=== PATIENT | female | born 1960 | race Caucasian/White ===

== ENCOUNTER 2018-08-31 05:58 | Day surgery (SDC) | payer BC ==
[~2018-08-31] VITALS: Ht 149.9 cm; Wt 62.2 kg
[2018-08-31 06:51] VITALS: Ht 149.9 cm; Wt 62.2 kg
[2018-08-31] MEDS ORDERED: LOSARTAN (07:01)
[2018-08-31] MEDS ORDERED: PREVACID (07:01)
[2018-08-31] MEDS ORDERED: GABAPENTIN (07:01)
[2018-08-31] MEDS ORDERED: MIDAZOLAM 1 MG/ML 2 ML INJ ONE ×2 (07:59→08:00)
[2018-08-31] MEDS ORDERED: FENTAnyl 50 MCG/ML VIAL ONE (07:59)
[2018-08-31 08:10] VITALS: BP 130/77; RESP 15
--- NOTE | 2018-08-31 12:46 | CONS ---
DATE OF ADMISSION: 08/31/2018 DATE OF CONSULTATION: PATIENT NAME: JERAMY HAYWOOD TYPE OF CONSULTATION: Preoperative gastroenterology. Dear Dr. Escobar: I thank you very much for this kind referral. HISTORY OF PRESENT ILLNESS: Ms. Jeramy Haywood is a 57-year-old female patient who has been referred to me for further evaluation of upper abdominal pain and chronic heartburn not responding to therapy . No past history of peptic ulcer disease. Not on nonsteroidal anti-inflammatory agents. No histor y of gallstones or liver disease. Appetite is good and no weight loss. The patient denies any ramachandran e in the bowel habit or rectal bleeding. No past history of colon neoplasm. The patient never got s creening colonoscopy. The patient states she had abdominal ultrasound done and it was negative. Not a hypertensive or diabetic. No heart disease, lung problem, or kidney disease. PAST SURGICAL HISTORY: Status post hysterectomy. SOCIAL HISTORY: Nonsmoker. No alcohol abuse. FAMILY HISTORY: No family history of gastrointestinal tract neoplasm. ALLERGIES: NO DRUG ALLERGIES. MEDICATIONS: None. PHYSICAL EXAMINATION: VITAL SIGNS: She is 4 feet, 11 inches tall and weighs 140 pounds. HEART: Normal heart sounds. LUNGS: Clear. ABDOMEN: Soft. No masses. Normal bowel sounds. NEUROLOGIC: Normal. IMPRESSION: 1. Upper abdominal pain and chronic heartburn, not responding to therapy. 2. The patient had abdominal ultrasound and according to her, it was negative. 3. The patient is a 57-year-old and she needs screening colonoscopy. 4. Status post hysterectomy. PLAN: 1. Prevacid 24 hours p.o. q.a.m. 2. Endoscopic examination for further evaluation of abdominal pain and chronic heartburn. 3. Screening colonoscopy at a later date. The procedures and possible complications are well explained to the patient. She understands and con sents to the procedures. I thank you once again. With warmest personal regards, Dictated By: TIMI JONES/FRANCINE Conf#: [id number] DID#: [id number]
== END 2018-08-31 11:42 | disposition home or self-care (01) ==
LOC: GIL 05:58
PROVIDERS: ATTEND Internal Medicine Gastroenterology
DX: K29.30 Chronic superficial gastritis without bleeding (principal); K44.9 Diaphragmatic hernia without obstruction or gangrene; K21.9 Gastro-esophageal reflux disease without esophagitis
CPT/HCPCS: 43239; 88305; 88312; 88313; J2250; J3010; Z7610

== ENCOUNTER 2018-09-09 17:20 | Emergency (ER) | payer BC ==
[~2018-09-09] VITALS: Ht 157.5 cm; Wt 62.0 kg
[~2018-09-09 17:20] MED LIST: GABAPENTIN; LOSARTAN; PREVACID
[2018-09-09 17:44] VITALS: BP 164/69; PULSE 74; RESP 18; Ht 157.5 cm; Wt 62.0 kg
[2018-09-09] MEDS ORDERED: IBUP-1561 PO (19:21)
[2018-09-09] MEDS ORDERED: D-ME473S2 PO (19:21)
[2018-09-09] MEDS ORDERED: SULF15DR19 RIGHT EYE (19:21)
--- NOTE | 2018-09-09 19:27 | ERD ---
ER Documentation Chief Complaint Chief Complaint pt bib self with c/o right eye reddness, pain, and itching x 8 days HPI 57-year-old female presents with right eye redness for the last week. She also has cough and congestion. She denies any visual changes or pain in the eye. She has minimal discharge. She denies history of trauma or contact lens use. ROS All systems reviewed and are negative except as per history of present illness. Medications Home Meds Active Scripts Ibuprofen* (Motrin*) 400 Mg Tab, 400 MG PO Q6, #15 TAB Prov:LISBETH AMANDA MD 09/09/18 Dextromethorphan Hb-Promethazine Hcl* (Promethazine DM* Syrup) 473 Ml Syrup, 5 ML PO Q6 PRN for COUGH for 5 Days, ML Prov:LISBETH AMANDA MD 09/09/18 Sulfacetamide Sodium* (Bleph-10*) 10%-15 Ml Opht Drops, 1 DROP RIGHT EYE Q2H for 7 Days, #1 EA Prov:LISBETH AMANDA MD 09/09/18 Reported Medications [Gabapentin] No Conflict Check 08/31/18 [Losartan] No Conflict Check 08/31/18 [Prevacid] No Conflict Check 08/31/18 Allergies Allergies: Coded Allergies: No Known Allergy (Unverified , 08/31/18) PMhx/Soc History of Surgery: Yes (Hysterectomy) Anesthesia Reaction: No Hx Neurological Disorder: No Hx Respiratory Disorders: No Hx Cardiac Disorders: No Hx Psychiatric Problems: No Hx Miscellaneous Medical Probl: No Hx Alcohol Use: No Hx Substance Use: No Hx Tobacco Use: No Smoking Status: Never smoker Physical Exam Vitals Vital Signs Date Temp Pulse Resp B/P (MAP) Pulse Ox O2 O2 Flow FiO2 Time Delivery Rate 09/09/18 98.5 74 18 164/69 97 17:44 (100) Physical Exam Const: No acute distress Head: Atraumatic Eyes: Right eye redness. Eyes Jovan and extraocular movements intact no periorbital proptosis or erythema. ENT: Normal External Ears, Nose and Mouth. Neck: Full range of motion. No meningismus. Resp: Clear to auscultation bilaterally. Dry cough without rales, wheezing or retractions. Cardio: Regular rate and rhythm, no murmurs Abd: Soft, non tender, non distended. Normal bowel sounds Skin: No petechiae or rashes Back: No midline or flank tenderness Ext: No cyanosis, or edema Neur: Awake and alert Psych: Normal Mood and Affect Results 24 hrs Current Medications Medications Dose Sig/Martín Start Time Status Last (Trade) Ordered Route PRN Stop Time Admin Dose Reason Admin 650 mg ONCE ONCE 09/09/18 Acetaminophen PO 19:30 09/09/18 (Tylenol 19:31 Tab) Procedures/MDM Patient presents with right eye redness without other symptoms. She also has URI symptoms. She has no signs or symptoms to suggest corneal ulcer, abrasions, dendritic lesions, orbital cellulitis, will treat empirically with promethazine DM, Tylenol, Bleph-10, primary care follow-up and return precautions. Patient has no signs or symptoms of visual changes, visual field deficits. There are no signs or symptoms to suggest orbital cellulitis, retinal detachment, optic neuritis, retinal artery ischemia, dendritic lesions, ulcers, threats to vision or additional eye emergencies. Doubt acute glaucoma. Patient will be discharged home with recommendations for primary care and ophthalmology follow- up within the next 1-2 days. They should otherwise return to the ER for persistent or worsening symptoms. The patient was stable with no new complaints during the ER course. Clinically, there is no current evidence to suggest meningitis, sepsis, acute abdomen, pneumonia, stroke, acute coronary syndrome, pulmonary embolism, aortic dissection or any other emergent condition appearing to require further evaluation or hospitalization. Patient counseled regarding my diagnostic impression and care plan. Prior to discharge all questions answered. Pt agrees with treatment plan and understands strict return precautions. Pt is instructed to follow up with primary care provider within 24- 48 hours. Precautionary instructions provided including instructions to return to the ER if not improving or for any worsening or changing symptoms or concerns. Departure Diagnosis: Primary Impression: Conjunctivitis Conjunctivitis type: unspecified Laterality: right Qualified Codes: H10.9 - Unspecified conjunctivitis Condition: Stable Patient Instructions: Conjunctivitis, Non-Specific, Uri, Viral, No Abx (Adult) Additional Instructions: Cheque otro vez con olsen doctor primario en el proximo funk or regresa para mas o nueva simptomas. Probablamente un virus que dura 2-4 funk. cheque otro vez en el proximo subhash para mas simptomas- vomito, dolor, tyesha, problemas con respirando, o con olsen doctor primario. LISBETH AMANDA MD Sep 09, 2018 19:27
[2018-09-09] MEDS ORDERED: ACETAMINOPHEN 325 MG TAB PO ONE (19:30)
== END 2018-09-09 19:35 | disposition home or self-care (01) ==
LOC: FTE 17:20
DX: H10.9 Unspecified conjunctivitis (principal)
CPT/HCPCS: Z7502; Z7610; 99283

== ENCOUNTER 2018-10-12 06:11 | Day surgery (SDC) | payer BC ==
[~2018-10-12] VITALS: Ht 152.4 cm; Wt 59.1 kg
[~2018-10-12 06:11] MED LIST changes: +D-ME473S2 PO; +IBUP-1561 PO; +SULF15DR19 RIGHT EYE
[2018-10-12 07:26] VITALS: Ht 152.4 cm; Wt 59.1 kg
[2018-10-12 07:33] VITALS: BP 125/67; PULSE 50; RESP 18
[2018-10-12 08:40] VITALS: BP 131/65; PULSE 54; RESP 16
[2018-10-12] MEDS ORDERED: MIDAZOLAM 1 MG/ML 2 ML INJ ONE ×2 (08:47→08:48)
[2018-10-12] MEDS ORDERED: FENTAnyl 50 MCG/ML VIAL ONE (08:48)
[2018-10-12 08:55] VITALS: BP 127/68; PULSE 50; RESP 16
[2018-10-12 09:14] VITALS: BP 111/62; PULSE 51; RESP 18
== END 2018-10-12 10:42 | disposition home or self-care (01) ==
LOC: GIL 06:11
PROVIDERS: ATTEND Internal Medicine Gastroenterology
DX: Z12.11 Encounter for screening for malignant neoplasm of colon (principal); K64.8 Other hemorrhoids
CPT/HCPCS: 45378; J2250; J3010; Z7610

== ENCOUNTER 2018-12-30 21:23 | Emergency (ER) | payer BC ==
[~2018-12-30] VITALS: Ht 149.9 cm; Wt 63.1 kg
[2018-12-30 21:25] VITALS: Ht 149.9 cm; Wt 63.1 kg
--- NOTE | 2018-12-30 23:30 | ERD ---
ER Documentation Chief Complaint Chief Complaint dizziness/MAC/nausea/AP x4 days, frequency started yesterday HPI This is a 58-year-old female presents emergency department with complaints of dizziness, headache, nausea for about 4 days. Stated that yesterday she felt like her surroundings moving. LMP: Denies headache, head injury, loss of consciousness, neck pain, neck stiffness, throat pain, difficulty swallowing, difficulty breathing lying flat, shoulder pain, chest pain, back pain, abdominal pain, nausea, vomiting, constipation, diarrhea, urinary symptoms, or possibility being , loss of bowel and bladder control, trauma, injury, falls, difficulty walking due to jimmie n, numbness or tingling sensation, calf pain, recent travel, recent major surgery in the last 3 weeks, calf pain, recent long travel, recent exposure to any illness, recent antibiotic use in the last 3 months, fever, chills, seizures. Past medical history: Surgical history: Social: Denies smoking, use of alcoholic beverages, use of illegal drugs. ROS All systems reviewed and are negative except as per history of present illness. Medications Home Meds Active Scripts Omeprazole* (Omeprazole*) 40 Mg Capsule.dr, 40 MG PO DAILY, #30 CAP Prov:PASILABAN,REBELAR F 12/31/18 Diphenhydramine Hcl* (Benadryl*) 25 Mg Cap, 25 MG PO Q6 PRN for ITCHING/RASH, #30 TAB Prov:PASILABAN,KLAR F 12/31/18 Metoclopramide* (Reglan*) 10 Mg Tablet, 10 MG PO Q6 PRN for NAUSEA AND/OR VOMITING, #20 TAB Prov:PASILABAN,REBELAR F 12/31/18 Meclizine Hcl* (Antivert*) 12.5 Mg Tab, 12.5 MG PO Q6H PRN for DIZZINESS, #20 TAB Prov:PASILABAN,REBELAR F 12/31/18 Ibuprofen* (Motrin*) 600 Mg Tab, 600 MG PO Q6H PRN for PAIN AND OR ELEVATED TEMP, #30 TAB Prov:PASILABAN,KLAR F 12/31/18 Ibuprofen* (Motrin*) 400 Mg Tab, 400 MG PO Q6, #15 TAB Prov:LISBETH AMANDA MD 09/09/18 Dextromethorphan Hb-Promethazine Hcl* (Promethazine DM* Syrup) 473 Ml Syrup, 5 ML PO Q6 PRN for COUGH for 5 Days, ML Prov:LISBETH AMANDA MD 09/09/18 Sulfacetamide Sodium* (Bleph-10*) 10%-15 Ml Opht Drops, 1 DROP RIGHT EYE Q2H for 7 Days, #1 EA Prov:LISBETH AMANDA MD 09/09/18 Reported Medications [Gabapentin] No Conflict Check 08/31/18 [Losartan] No Conflict Check 08/31/18 [Prevacid] No Conflict Check 08/31/18 Allergies Allergies: Coded Allergies: No Known Allergy (Unverified , 08/31/18) PMhx/Soc Medical and Surgical Hx: pt denies Medical Hx History of Surgery: No Anesthesia Reaction: No Hx Neurological Disorder: No Hx Respiratory Disorders: No Hx Cardiac Disorders: No Hx Psychiatric Problems: No Hx Miscellaneous Medical Probl: No Hx Alcohol Use: No Hx Substance Use: No Hx Tobacco Use: No Smoking Status: Current every day smoker Physical Exam Vitals Physical Exam Head: Atraumatic Eyes: Normal Conjunctiva. No nystagmus. No visual field loss. Extraocular movement of her eyes are within normal limits. ENT: Normal External Ears, Nose and Mouth. Bilateral ears: TMs are not erythematous. No bleeding. No discharge. No hearing loss. No mastoid tenderness. Nose: There is no frontal or maxillary sinus tenderness palpation. Throat: Uvula is in midline and nondisplaced. Tonsils are +1 bilaterally without redness and without exudates. Tolerating secretions. Patent airway. Speaks full and clear sentences. No tripoding. Neck: Full range of motion. No meningismus. No nuchal rigidity. No signs of meningeal irritation. Resp: Clear to auscultation bilaterally. No accessory muscle use in breathing. Cardio: Regular rate and rhythm, no murmurs Abd: Soft, non tender, non distended. Normal bowel sounds. Negative Catherine sign. Negative [place] sign (heel jar test). Negative psoas sign. Negative Rovsing sign. No CVA tenderness. Skin: No petechiae or rashes. Color appears normal for ethnicity. No skin tenting. No signs of severe dehydration. Back: No midline or flank tenderness Ext: No cyanosis, or edema Neur: Awake and alert. No obvious facial droop. Follows commands. Sensation is intact. Equal senior programmer. Equal strength in bilateral upper and lower extremities. Romberg test is negative. No neurological deficits. Psych: Normal Mood and Affect Results 24 hrs Laboratory Tests Test 12/31/18 00:19 Urine Color STRAW Urine Clarity CLEAR Urine pH 6.0 Urine Specific Tyler 1.006 Urine Ketones NEGATIVE mg/dL Urine Nitrite NEGATIVE mg/dL Urine Bilirubin NEGATIVE mg/dL Urine Urobilinogen NEGATIVE mg/dL Urine Leukocyte Esterase TRACE Dima/ul Urine Microscopic RBC 1 /HPF Urine Microscopic WBC 3 /HPF Urine Squamous Epithelial Cells FEW /HPF Urine Hemoglobin 2+ mg/dL Urine Glucose NEGATIVE mg/dL Urine Total Protein NEGATIVE mg/dl Current Medications Medications Dose Sig/Martín Start Time Status Last (Trade) Ordered Route PRN Stop Time Admin Dose Reason Admin Sodium 1,000 ml @ Q1H ONCE 12/31/18 DC 12/31/18 Chloride 1,000 mls/hr IV 00:00 00:11 12/31/18 00:59 10 mg ONCE ONCE 12/31/18 DC 12/31/18 Metoclopramid IV 00:00 00:11 e HCl 12/31/18 00:01 (Reglan) 25 mg ONCE ONCE 12/31/18 DC 12/31/18 Diphenhydrami IV 00:00 00:11 ne HCl 12/31/18 00:01 (Benadryl) Procedures/MDM Diagnostic tests: EKG: Sinus bradycardia with a ventricular rate of 50 bpm. No STEMI. Urinalysis: Reviewed. Culture urine: Sent. Treatment: Saline lock. Normal saline IV bolus. Reglan IV. Benadryl IV. Re-evaluation: No obvious facial droop. Follows commands. Sensation is intact. Speaks full and clear sentences. Equal senior programmer. Equal strength in bilateral upper and lower extremities. Romberg test is negative. No neurological deficits. Stated that she feels much better at this time and that she is ready to go home. Stated that she is comfortable to go home. Differential diagnosis I have low suspicion for stroke, intracranial hemorrhage, sepsis. Final diagnosis: Vertigo. Prescription: Motrin. Omeprazole. Benadryl. Reglan. Antivert. Follow-up with PCP in the next 24-48 hours. PCP to refer patient to neurologist and/or ENT in the next 3 to 5 days. Come back here in the emergency department for any new symptoms or any worsening symptoms. All questions and concerns were answered. Patient and family members verbalized understanding and agreed with plan of care. Hemodynamically stable on discharge. Departure Diagnosis: Primary Impression: Dizziness Additional Impressions: Vertigo Viral syndrome Condition: Stable Additional Instructions: Follow-up with PCP in the next 24-48 hours. PCP to refer patient to neurologist and/or ENT in the next 3 to 5 days. Come back here in the emergency department for any new symptoms or any worsening symptoms. ISRRAEL HEADLEY Dec 30, 2018 23:30
[2018-12-31] MEDS ORDERED: DIPHENHYDRAMINE 50 MG INJ IV ONE
[2018-12-31] MEDS ORDERED: SOD CHLORIDE 0.9% 1,000 ML IV ONE
[2018-12-31] MEDS ORDERED: METOCLOPRAMIDE 10 MG INJ IV ONE
[2018-12-31] MEDS ORDERED: MECL12.574 PO (00:53)
[2018-12-31] MEDS ORDERED: IBUP-1542 PO (00:53)
[2018-12-31] MEDS ORDERED: METO10TA92 PO (00:54)
[2018-12-31] MEDS ORDERED: OMEP40CA6 PO (00:54)
[2018-12-31] MEDS ORDERED: BEN25 PO (00:54)
[2018-12-31 02:13] VITALS: BP 121/73; PULSE 56; RESP 17
== END 2018-12-31 02:13 | disposition home or self-care (01) ==
LOC: FTE 21:23
DX: B34.9 Viral infection, unspecified (principal); F17.210 Nicotine dependence, cigarettes, uncomplicated
CPT/HCPCS: 81001; 87086; 93005; 96374; 96375; J1200; J2765; J7030; Z7502